=== PATIENT | female | born 1995 | race Caucasian/White ===

== ENCOUNTER 2021-12-05 15:52 | Emergency (ER) | payer OTHER ==
[2021-12-05 16:40] LABS: HEMOGLOBIN 13.2 gm/dl (12.3-15.3); RED BLOOD COUNT 4.37 M/UL (4.00-5.10); WHITE BLOOD COUNT 12.2 K/UL (4.5-11.0)
[2021-12-05 17:03] LABS: BUN/CREATININE RATIO 13 (0-10)
[2021-12-05] MEDS ORDERED: ZOFRAN ODT 4 MG4 MG SL (18:41)
[2021-12-05] MEDS ORDERED: IBU800 MG PO (18:41)
[2021-12-05] MEDS ORDERED: OMNICEF 300 MG300 MG PO (18:41)
== END 2021-12-05 19:26 | disposition home or self-care (01) ==
LOC: ER1 15:52
PROVIDERS: Nurse Practitioner
DX: N76.0 Acute vaginitis (principal); B95.5 Unspecified streptococcus as the cause of diseases classified elsewhere
CPT/HCPCS: 76856; 80053; 81001; 83605; 83690; 84703; 85025; 86403; 87081; 87880; 93005; 96374; 96375; 99284; J0696; J1885; J2405